=== PATIENT | female | born 1945 | race Caucasian/White ===

== ENCOUNTER 2018-09-29 09:25 | Inpatient (IN) | payer MEDICARE, OTHER ==
[2018-09-18 09:32] LABS: ABSOLUTE BASOPHILS 0.1 thou/uL (0.0-0.2); ABSOLUTE EOSINOPHILS 0.3 thou/uL (0.0-0.7); ABSOLUTE LYMPHOCYTES 1.8 thou/uL (0.8-5.3); ABSOLUTE MONOCYTES 0.5 thou/uL (0.0-1.2); ABSOLUTE NEUTROPHILS 5.7 thou/uL (1.6-8.1); BASOPHILS 1.4 %; EOSINOPHILS 3.1 %; HEMATOCRIT 43.5 % (37.0-47.0); HEMOGLOBIN 14.8 gm/dL (12.0-15.0); LYMPHOCYTES 21.4 %; MCH 30.7 pg (26.0-34.0); MCV 90.2 fL (80.0-100.0); MONOCYTES 6.3 %; MPV 7.7 fl. (7.2-11.1); NUCLEATED RBCS 0 /100WBC; PLATELET COUNT* 306 thou/uL (150-400); POLYS 67.8 %; RBC 4.83 mil/uL (4.20-5.00); RDW-CV 13.6 % (10.5-14.5); WBC 8.4 thou/uL (4.0-11.0)
[2018-09-18 09:46] LABS: APTT 28.9 Seconds (25.0-31.3); CALCIUM 8.8 mg/dL (8.5-10.1); CREATININE 0.8 mg/dL (0.6-1.3); POTASSIUM 3.6 mmol/L (3.5-5.1); PROTIME 10.2 Seconds (9.20-11.50)
[2018-09-18 09:50] LABS: ALBUMIN 3.6 g/dL (3.4-5.0); TOTAL BILIRUBIN 0.4 mg/dL (<0.1-1.0); TOTAL PROTEIN 7.5 g/dL (6.4-8.2)
[2018-09-18 11:02] LABS: ESR (SEDRATE) 29 mm/hr (0-30)
[2018-09-18 19:08] LABS: GLYCOHEMOGLOBIN (HGB A1C) 7.2 % (4.8-5.6)
--- NOTE | 2018-09-19 10:19 | EKG ---
[place] [address] ELECTROCARDIOGRAM REPORT Name: MARIS LAKHANI Room: [facility]#: [id number] Admission: Attend Phys: Obinna Ferrara DO Discharge: Date of : 41 Report #: [id number] THIS REPORT FOR: //name// [facility] Test Date: 2018-09-18 Test Time: 09:46:54 Pat Name: MARIS LAKHANI Department: Room: Gender: F Seasonal Tax Preparer: : 1945 Requested By: Obinna Ferrara Order Number: [id number] Crystal MD: Ion Lipscomb Measurements Intervals [place] Rate: 76 P: 52 [place]: 184 QRS: -21 QRSD: 97 T: 30 QT: 401 QTc: 451 Interpretive Statements Sinus rhythm Borderline left axis deviation Low voltage, precordial leads Compared to ECG 11/24/2012 11:03:39 Low QRS voltage now present Electronically Signed On 09-19-2018 10:19:26 AWAKE OVERNIGHT MONITOR by Ion Lipscomb [email or web address] <ELECTRONICALLY SIGNED> By: Ion Lipscomb MD, [facility] 09/19/18 1019 D: 01945 5 Ion Lipscomb MD, FACC /EPI
[~2018-09-29] VITALS: Ht 154.9 cm; Wt 102.1 kg
[~2018-09-29 09:25] MED LIST: ASPIRIN EC81 M1 PO; COLACE 100 MG100 MG PO; CYMBALTA30 MG PO; CYMBALTA60 MG PO; ENALAPRIL-HCTZ1 EACH PO; HYDROCODON-ACE1 EAC7 PO; HYZAAR 50-12.51 EACH PO; LEVOTHYROXIN0.137 M1 PO; METFORMIN HCL500 MG PO; MOBIC15 MG PO; NORVASC 5 MG TAB5 MG PO; OXYIR 5 MG CAPSU5 M1 PO; XARELTO10 M1 PO
[2018-09-29 10:00] VITALS: BP 142/85
[2018-09-29 16:30] VITALS: BP 150/65
--- NOTE | 2018-09-29 17:30 | NUR ---
ALERT AND ORIENTED X4. IV IS PATENT AND INFUSING. DENIES NAUSEA. PAIN BEING MANAGED WITH PO PAIN MEDICATION. TANISHA HOSE IN PLACE. DRESSING TO LEFT KNEE IS C/D/I. CAP-NO IN PLACE. VSS ON ROOM AIR. HOURLY ROUNDS HAVE BEEN MAINTAINED SINCE ARRIVING TO UNIT. CALL LIGHT IS WITHIN REACH. NURSING WILL CONTINUE TO MONITOR.
[2018-09-29 20:00] VITALS: BP 149/70
[2018-09-30] VITALS: BP 127/53
[2018-09-30 04:00] VITALS: BP 123/54
[2018-09-30 04:42] LABS: HEMATOCRIT 36.1 % (37.0-47.0); HEMOGLOBIN 12.1 gm/dL (12.0-15.0)
--- NOTE | 2018-09-30 05:19 | NUR ---
ASSUMED CARE OF PT AT 1900 PT SLEEPY BUT AROUSABLE AND ORIENTED X4 VS AND ASSESSMENT STABLE.PT HAD PAIN MEDS TWICE THEN SLEPT THROUGH THE NIGHT. POSITIVE CMS CHECKS TO LLE. WILL CONTINUE PLAN OF CARE.
--- NOTE | 2018-09-30 07:03 | OP ---
[facility] [address] [place] [address] OPERATIVE REPORT Name: MARIS LAKHANI Room: [address] [place] .R.#: [id number] Admission: 09/29/18 Attend Phys: Sander Chong Discharge: Date of : 41 Report #: [id number] THIS REPORT FOR: //name// CC: Manisha Grady DICTATED BY: Fracisco Shukla DO DATE OF SERVICE: 09/29/2018 PREOPERATIVE DIAGNOSIS: Left knee degenerative joint disease. POSTOPERATIVE DIAGNOSIS: Left knee degenerative joint disease. OPERATION PERFORMED: Left total knee arthroplasty. SURGEON: Obinna Ferrara DO WINDOW TRIMMER APPRENTICE: 1. Fracisco Shukla DO 2. Robby Silva DO ANESTHESIA: General and local with regional pain blocks. SPECIMEN: None. ESTIMATED BLOOD LOSS: 250 mL. COMPLICATIONS: None. DRAINS: None. ANTIBIOTICS: Ancef 2 grams IV preoperatively. ORTHOPEDIC IMPLANTS: Left total knee arthroplasty using the following implants: 1. Biomet Vanguard CR femur, 62.5 mL. 2. Biomet Vanguard fixed cruciate tibial plate with locking bar, 63 mm. 3. Biomet Vanguard tibial bearing, 12 mm. 4. One bag of Palacos bone cement. FINDINGS: Upon entering the knee joint, there was eburnated bone and osteophytic lipping most prominently in the medial femoral condyle and medial tibial plateau, also degenerative changing of eburnated bone and loss of cartilage in the lateral femoral condyle and lateral tibial plateau. The patella appeared rather free of any [place] [address] OPERATIVE REPORT Name: MARIS LAKHANI Pattie Room: [address] [place] .R.#: [id number] Admission: 09/29/18 Attend Phys: Sander Chong Discharge: Date of : 41 Report #: [id number] OPERATIVE INDICATIONS: The patient is a pleasant 73-year-old female who has a history of bilateral knee degenerative joint disease. She had undergone right total knee arthroplasty in 2012 and had done well with this. Her left knee became increasingly more painful and bothersome affecting her quality of life. She failed conservative treatment options including steroid injections, activity modification, attempts at weight loss and he continued to have severe pain that was unrelenting. X-rays demonstrated joint space narrowing and osteophytic lipping as well as subchondral sclerosis. She was informed that she will be a candidate for total knee arthroplasty. All the risks, complications, benefits and indications for the procedure as well as any alternatives were reviewed thoroughly and the patient demonstrated good understanding and wanted to proceed with surgery. DESCRIPTION OF PROCEDURE: I met with the patient in the preoperative suite and once again we reviewed the risks and benefits of the procedure. The patient agreed and signed written consent. The patient was taken to the Operating Room and placed supine on a well-padded table and given the benefit of general anesthesia. A well-padded tourniquet was placed on the left upper thigh. However, this tourniquet was not insufflated at all during the procedure. Then, the left lower extremity was sterilely prepped and draped in a standard fashion. At this time, a timeout was performed to ensure correct patient, procedure and operative site. Everyone in the room was in agreement and we elected to proceed. To begin, the procedure, a #10 blade was used to make an anterior midline skin incision as well as through the subcutaneous tissue. The medial parapatellar arthrotomy was created using a second knife. Anterior horn of the medial and lateral menisci were excised as well as accessed to the Hoffa's fat pad. The patella was everted and any remaining soft tissue of menisci or Hoffa's fat pad was then excised. Next the intramedullary femoral cutting guide was placed and a 9 mm resection from the distal femur at 5 degrees of valgus was performed. Once this resection was completed, we then turned our attention to the tibia. An extramedullary tibial guide was pinned into place in line with the tibial crest and medial third of the tibial tubercle as well as the second metatarsal ray. Appropriate slope was also verified and an approximate 8 mm resection was taken from the proximal tibia after the guide was pinned into place. Next, the knee was brought into full extension and using the sizing block, verified that a 10 block spacer was able to sit and with proper stability in varus and valgus stress testing. Next, we brought the knee back up into full flexion and turned our attention to the distal femur. We did AP sizer for the distal femoral cutting block. At that point, we found that a size 62.5 was appropriate. The 4-in-1 cutting block was impacted into place and secured and the anterior and posterior distal femur cuts as well as the chamfer cuts were performed. Next, the tibia was sized and pinned into position. Next, the tibial implant trial was sized and pinned into position with an adequate fit and this was followed by [address] [place] [address] OPERATIVE REPORT Name: MARIS LAKHANI Room: [address] [place] ..#: [id number] Admission: 09/29/18 Attend Phys: Sander Chong Discharge: Date of : 41 Report #: [id number] the femoral trial implant, which was placed. Once both implants were secured, a 10 mm spacer was used. It was found that the tibial component was slightly malpositioned and this was then corrected. With the corrected position, the trial components provided adequate stability in varus and valgus stress testing as well as full extension and flexion. We turned our attention to the patella at this time and found that there was very minimal if any cartilage loss. The patella was denervated and we then proceeded to move on to the cementing of the final components. The trial components were removed and prior to removal of the tibial component, the tibial intramedullary region as well as cruciate punch were used. With all the trial components out, the bone ends were then thoroughly irrigated with Pulsavac and the posterior capsule and periosteum were injected with a local orthopedic cocktail. Once the bone ends were thoroughly irrigated and dried, the cementing of the components was carried out in a standard fashion, first with the tibial component and this was then followed with the femoral component. A size 10 mm trial spacer was inserted and found to be somewhat loose in varus and valgus stress testing, therefore we elected to move up to a size 12 polyethylene bearing and this provided adequate stability with full extension, flexion and stability with varus and valgus stress testing. We placed the final size 12 polyethylene bearing and it was secured into place with the locking bar. We then allowed the cement to harden and cure. Next, the capsule was closed using first interrupted lxedld-om-guusc #1 Vicryl sutures and this was followed by a running #1 Quill suture. Next, the subcutaneous tissue was irrigated and we began to close subcutaneous tissue with 2-0 Monocryl in a simple interrupted fashion with inverted sutures. This was followed by 3-0 Stratafix running suture for the subcuticular layer. Dermabond glue was then placed over the incision and once the glue dried, the incision was covered with a Mepilex AG dressing. TANISHA hose was then applied. All needle and sponge counts were correct x 2 at the end of the procedure. Anesthesia was reversed per the anesthesia team and the patient was brought to the PACU in stable condition. PQRS guidelines: The patient will be given both mechanical and chemical DVT prophylaxis. The patient will also be given 24 hours of antibiotics postoperatively. <ELECTRONICALLY SIGNED> By: Brayan Beckham DO 09/30/18 0703 [id number] 1802Raubrey Ferrara DO /nato
[2018-09-30 07:58] VITALS: BP 165/73
[2018-09-30 16:00] VITALS: BP 146/68
--- NOTE | 2018-09-30 16:46 | NUR ---
CM CALLED IN PRESCRIPTION WRITTEN TO PT[facility]. WILL CALL IN AM FOR COPAY. PT.NOT DISCHARGING TODAY.
--- NOTE | 2018-09-30 17:12 | NUR ---
RECIEVED O.T. ORDERS. WILL DEFER TO P.T. AND NURSING AT THIS TIME. PLEASE ORDER FURTHER O.T. SERVICES IF NEEDED.
--- NOTE | 2018-09-30 17:15 | NUR ---
PT REMAINED ALERT AND ORIENTED. PT IS ON 1 LITER O2 BY NASAL CANNULA, O2 SAT RANGING FROM 88%-95%, FAMILY REQUESTED OXYGEN. PT WORKED WITH THERAPY. HYDROCODONE GIVEN FOR PAIN. POSSIBLE DISCHARGE HOME TOMORROW. FALL RISK PRECAUTIONS IN PLACE. HOURLY ROUNDING COMPLETED. WILL CONTINUE TO MONITOR.
[2018-09-30 20:00] VITALS: BP 136/54
[2018-10-01 00:30] VITALS: BP 152/67
[2018-10-01 04:18] VITALS: BP 150/67
[2018-10-01 04:55] LABS: HEMATOCRIT 34.5 % (37.0-47.0); HEMOGLOBIN 11.6 gm/dL (12.0-15.0)
--- NOTE | 2018-10-01 05:15 | NUR ---
ASSUMED CARE OF PT AT 1900 PT ALERT AND ORIENTED X4 VS AND ASSESSMENT STABLE. PT HAD PAIN MEDS ONCE THEN SLEPT THROUGH THE NIGHT. WILL CONTINUE PLAN OF CARE
[2018-10-01 07:50] VITALS: BP 154/62
[2018-10-01 11:04] LABS: ABSOLUTE BASOPHILS 0.1 thou/uL (0.0-0.2); ABSOLUTE EOSINOPHILS 0.1 thou/uL (0.0-0.7); ABSOLUTE LYMPHOCYTES 1.8 thou/uL (0.8-5.3); ABSOLUTE MONOCYTES 1.1 thou/uL (0.0-1.2); ABSOLUTE NEUTROPHILS 10.4 thou/uL (1.6-8.1); BASOPHILS 0.4 %; EOSINOPHILS 0.7 %; HEMATOCRIT 33.6 % (37.0-47.0); HEMOGLOBIN 11.2 gm/dL (12.0-15.0); LYMPHOCYTES 13.7 %; MCH 30.6 pg (26.0-34.0); MCHC 33.4 g/dL (28.0-37.0); MCV 91.8 fL (80.0-100.0); MONOCYTES 8.1 %; MPV 7.9 fl. (7.2-11.1); NUCLEATED RBCS 0 /100WBC; PLATELET COUNT* 240 thou/uL (150-400); POLYS 77.1 %; RBC 3.67 mil/uL (4.20-5.00); RDW-CV 13.4 % (10.5-14.5); WBC 13.5 thou/uL (4.0-11.0)
[2018-10-01 11:21] LABS: CALCIUM 8.5 mg/dL (8.5-10.1); CREATININE 0.8 mg/dL (0.6-1.3); POTASSIUM 3.8 mmol/L (3.5-5.1)
[2018-10-01 11:25] LABS: ALBUMIN 2.9 g/dL (3.4-5.0); TOTAL BILIRUBIN 0.5 mg/dL (<0.1-1.0); TOTAL PROTEIN 6.4 g/dL (6.4-8.2)
--- NOTE | 2018-10-01 14:14 | NUR ---
PT.UP IN RECLINER WAITING ON THERAPY. DAUGHTER AND PT.'S IN ROOM. PT.SAID WILL BE WITH HER AT DISCHARGE. DAUGHTER CAN HELP TOO. PT.HAS A WALKER WITH WHEELS FROM HOME THAT IS IN HER ROOM. SHE SAID SHE IS NORMALLY INDEPENDENT AT HOME. DOES NOT USE ANY DME AT HOME. NO HX OF HH OR SNF. PT.WOULD LIKE TO DO OUTPT.THERAPY AT [facility] WHEN DISCHARGED. CM INFORMED PT.COPAY FOR [facility] IS $18.62. EXPLAINED THEY WILL RECEIVE PAIN MEDICATION PRESCRIPTIONS AT DISCHARGE. PT.HAS A LOT OF STAIRS AT HER HOME. CM WILL FOLLOW.
[2018-10-01 15:45] VITALS: BP 147/55
--- NOTE | 2018-10-01 18:04 | NUR ---
ASSUMED CARE OF PATIENT AT APPROX 0730. ALERT AND OREINTED X4. ASSESSMENT COMPLETED AND CHARTED. VSS ON ROOM AIR. SOME COMPLAINTS OF NAUSE AND PAIN, MANAGING WITH ORAL AND IV MEDICATIONS. WORKED WELL WITH THERAPIES TODAY BUT HAVING PAIN CONTROL ISSUES RELATED TO PAIN MEDICATION CAUSING HER TO FEEL UNWELL. FALL PRECAUTIONS IN PLACE. CALL LIGHT IN REACH AND USES APPROPRIATELY. HOURLY ROUNDS COMPLETED. NURSING WILL CONTINUE TO MONITOR.
--- NOTE | 2018-10-01 18:08 | NUR ---
ASSUMED CARE OF PATIENT AT APPROX 0730. ALERT AND OREINTED X4 4. ASSESSMENT COMPLETED AND CHARTED. VSS ON ROOM AIR. PATIENT HAD NO COMPLAINTS OF NAUSEA OR SOA. PAIN HAS BEEN MANAGED WITH ORAL MEDICATIONS. PATIENTS FAMILY VERY CONCERNED THAT "NOTHING IS BEING DONE FOR THE PATIENT AND THAT SHE IS NOT GETTING BETTER, BUT WORSE." DR SHABAZZ ADDRESSED THE PATIENT AND FAMILY MULTIPLE TIMES AND PUT IN ORDERS FOR LABS, PORTABLE CXR AND CHANGED ORDERS FOR PAIN MEDICATIONS BECAUSE PATIENT WAS VERY SLEEPY THIS MORNING WHEN STAFF WAS ATTEMPTING TO TALK TO HER. AFTER TRYING DIFFERENT MEDICATIONS, PATIENT IS MUCH MORE ALERT BUT PAIN MANAGEMENT IS STILL AN ISSUE, WILL CONTINUE TO WORK ON THAT. PATIENTS RESPIRATORY STATUS WAS IN QUESTION THIS AM BY THE FAMILY, CXR WAS NEGATIVE, PATIENT AND FAMILY EDUCATED ON THE IMPORTANCE OF THE PATIENT USING THE INCENTIVE SPIROMETER AND GETTING UP AND MOVING AROUND TO KEEP HER LUNGS CLEAR AND HER 02 SATS IN THE 90'S. PATIENT DOING MUCH BETTER FROM A RESP STATUS WITH THESE ADJUSTMENTS. FALL PRECAUTIONS IN PLACE THIS SHIFT, CALL LIGHT IS WIHTIN REACH AND USES APPROPRIATELY. HOURLY ROUNDS COMPLETED, NURSING WILL CONTINUE TO MONITOR.
[2018-10-01 20:00] VITALS: BP 100/62
[2018-10-02] VITALS: BP 152/60
[2018-10-02 04:00] VITALS: BP 150/60
--- NOTE | 2018-10-02 04:35 | NUR ---
ASSUMED CARE AT START OF SHIFT PT UP TO BATHROOM WITH WALKER NO CONCERNS VOICED TOLERATED WELL, PAIN MEDICATION GIVEN NO NAUSEA REPORTED. WHEEZES NOTED PT USING IS UP TO 1999 . LEFT KNEE DRESSING DRY AND INTACT. ICE PACK TO KNEE. DISCUSSED PLAN OF CARE AND AGREEABLE , VERBALIZED UNDERSTANDING.
[2018-10-02 07:50] VITALS: BP 159/59
[2018-10-02 10:07] VITALS: BP 159/59
[2018-10-02] MEDS ORDERED: NORCO 5-325 TA1 EACH PO (10:15)
[2018-10-02] MEDS ORDERED: ELIQUIS2.5 MG PO (10:16)
[2018-10-02 11:23] VITALS: BP 159/59
--- NOTE | 2018-10-02 11:38 | NUR ---
CAME TO DESK AND SAID THEY WANTED TO HAVE HOME HEALTH FOR 2 WEEKS INSTEAD OF OUTPT.THERAPY. HE JUST DOES NOT FEEL HE CAN GET PT.OUT AND UP HERE (THEY LIVE IN [place]) 3 TIMES A WEEK. THEY WOULD LIKE TO USE [facility] AT HOME FOR HOME HEALTH. SPOKE WITH [facility]. THEY DO GO TO [place]. FAXED DISCARGE ORDERS TO HER, ALONG WITH H&P,OP REPORT AND FACE SHEET. THEY WILL CALL HER TO SET UP APPT.
--- NOTE | 2018-10-02 15:00 | NUR ---
ASSUMED CARE OF PATIENT AT APPROX 0730. ALERT AND OREINTED X4. ASSESSMENT COMPLETED AND CHARTED. VSS ON ROOM AIR. NO COMPLAINTS OF NAUSEA OR SOA. PAIN HAS BEEN MANAGED WITH ORAL MEDICATIONS. 02 SATS STABLE ON ROOM AIR, PATIENT NO LONGER REQUIRES OXYGEN. WORKED VERY WELL WITH THERAPIES TODAY. PATIENT DISCHARGED TO [facility] WITH HOME HEALTH AT 1430 WITH ALL PERSONAL BELONGINGS, PRESCRIPTIONS AND DISCHARGE INFORMATION.
== END 2018-10-02 14:30 | disposition home health service (06) | DRG 469 ==
LOC: M.SUR 09:25 → M.ORTHSURG 14:28 → M.TBA-ER 14:28 → M.ORTHSURG 15:37
PROVIDERS: Internal Medicine; Orthopaedic Surgery; ADMIT Internal Medicine
PROC: 0SRD0J9 Replacement of Left Knee Joint with Synthetic Substitute, Cemented, Open Approach (ICD-10-PCS; principal; 2018-09-29)
DX: M17.12 Unilateral primary osteoarthritis, left knee (principal); G92 Toxic encephalopathy; J98.11 Atelectasis; R09.02 Hypoxemia; I10 Essential (primary) hypertension; Z90.710 Acquired absence of both cervix and uterus; Z87.891 Personal history of nicotine dependence; Z79.899 Other long term (current) drug therapy